=== PATIENT | female | born 1985 | race Caucasian/White ===

== ENCOUNTER → 2017-10-09 | Outpatient (CLI) | payer BC ==
[~2017-10-09] MED LIST: CYCL10TA29 PO
[2017-10-09 10:54] LABS: LDL CHOLESTEROL 61 mg/dl
[2017-10-09 11:02] LABS: PLATELET COUNT, AUTOMATED 282 K/uL (150-450)
== END ==
LOC: LAB 10:18
PROVIDERS: ATTEND Nurse Practitioner Family
DX: Z00.00 Encounter for general adult medical examination without abnormal findings (principal); N92.0 Excessive and frequent menstruation with regular cycle; R42 Dizziness and giddiness; R53.83 Other fatigue; N64.4 Mastodynia; Z83.49 Family history of other endocrine, nutritional and metabolic diseases
CPT/HCPCS: 36415; 82040; 82247; 82310; 82374; 82435; 82465; 82565; 82947; 83718; 84075; 84132; 84155; 84295; 84443; 84450; 84460; 84478; 84520; 84703; 85025

== ENCOUNTER → 2017-11-12 | Outpatient (CLI) | payer BC ==
--- NOTE | 2017-11-12 16:56 | RADIOLOGY IMAGING REPORT ---
FACILITY: [facility] PATIENT NAME: Kourtney Marie : 1985 MR: [id number] V: [id number] EXAM DATE: ORDERING PHYSICIAN: KELLI SALCIDO TECHNOLOGIST: Location: [facility] [place] Patient: Kourtney Marie : 1985 Visit/Account:[id number] Date of Sevice: 11/12/2017 PELVIC HISTORY: Menorrhagia TECHNIQUE: Transabdominal and transvaginal ultrasound pelvis. COMPARISON: None. FINDINGS: Uterus: ; 7 cm length x 3.3 cm AP x 4.2 cm transverse. Myometrium: Unremarkable. Endometrium: Unremarkable; double thickness 5.1 mm. Cervix: Grossly negative. Ovaries: Right - 2.8 x 2.6 x 2.1 cm.. There is a 1.5 cm simple right ovarian cyst Left - 3.3 x 1.9 x 1.8 cm.. There is a 1.2 cm simple left ovarian cyst Blood flow is documented in each ovary by duplex Doppler ultrasound. Adnexa: Mildly prominent adnexal vessels. Free pelvic fluid: Trace. IMPRESSION: There is a trace amount of free pelvic fluid Small simple bilateral ovarian cysts Report Dictated By: Naomy Swenson MD at 11/12/2017 4:48 PM Report E-Signed By: Naomy Swenson MD at 11/12/2017 4:52 PM WSN:[email or web address]
== END ==
LOC: US 00:47
PROVIDERS: ATTEND Nurse Practitioner Family
DX: N83.292 Other ovarian cyst, left side (principal); N83.291 Other ovarian cyst, right side
CPT/HCPCS: 76856

== ENCOUNTER → 2018-11-20 | Outpatient (REF) | payer BC | LOC: ZZSTITCHES 18:13 | PROVIDERS: ATTEND Physician Assistant | DX: N91.2 Amenorrhea, unspecified (principal) | CPT/HCPCS: 84703 ==